=== PATIENT | female | born 1965 | race Caucasian/White ===

== ENCOUNTER → 2016-11-10 | Outpatient (CLI) | payer OTHER | LOC: FIMAGING 15:16 | DX: Z12.31 Encounter for screening mammogram for malignant neoplasm of breast (principal) | CPT/HCPCS: G0202 ==

== ENCOUNTER → 2017-12-21 | Outpatient (CLI) | payer OTHER | LOC: FIMAGING 08:28 | PROVIDERS: ATTEND Family Medicine | DX: Z12.31 Encounter for screening mammogram for malignant neoplasm of breast (principal) ==

== ENCOUNTER → 2018-09-06 | Outpatient (CLI) | payer OTHER | LOC: FIMAGING 13:30 | PROVIDERS: ATTEND Specialist | DX: L76.34 Postprocedural seroma of skin and subcutaneous tissue following other procedure (principal); Z98.82 Breast implant status ==

== ENCOUNTER 2018-09-11 12:20 | Day surgery (SDC) | payer OTHER ==
[2018-09-11] MEDS ORDERED: MIDAZOLAM 2 MG/2 ML VIAL IVP PRN (12:33)
[2018-09-11] MEDS ORDERED: MEPERIDINE 25 MG/ML SYR IVP PRN (12:33)
[2018-09-11] MEDS ORDERED: NALOXONE HCL 0.4 MG/ML INJ IVP PRN ×2 (12:33→12:44)
[2018-09-11] MEDS ORDERED: fentaNYL 100 MCG/2 ML INJ IVP PRN (12:33)
[2018-09-11] MEDS ORDERED: FLUMAZENIL 0.5 MG/5 ML MDV IVP PRN (12:33)
[2018-09-11] MEDS ORDERED: ceFAZolin 2 GM/DEXTROSE 100 ML IV ONE (12:44)
[2018-09-11] MEDS ORDERED: NS 1,000 ML IV SCH (12:45)
[2018-09-11] MEDS ORDERED: CEFAZOLIN 2 GM/DEXTROSE/100 ML BAG IV ONE (12:54)
[2018-09-11 13:22] LABS: PLATELET COUNT 307 10^3/uL (150-400)
--- NOTE | 2018-09-11 13:38 | PDPROPOC ---
Sedation Plan of Care ASA Classification: ASA 2 Mallampati Score: Class 2 Mallampati Reference Image:
--- NOTE | 2018-09-11 13:38 | PDRADPRE ---
Radiology History & Physical Indication for procedure: other (right breast seroma) Allergies/Adverse Reactions: Penicillins Allergy (Verified 09/11/18 12:32) Anaphylaxis Mental status: A&Ox3
[2018-09-11 13:39] LABS: INR 1.12 (0.83-1.16); PROTIME(PATIENT) 14.6 SEC (12.0-15.0)
--- NOTE | 2018-09-11 14:50 | PDRADPN ---
Radiology Procedure Note Date of Procedure: 09/11/18 Radiologist: Clyde Presley Anesthesia: IV Sedation Pre-op Diagnosis: right breast fluid Post-op Diagnosis: same Procedure: right breast aspiration Finding(s): right breast fluid has decreased, small pocket anterior to the implant was aspirated Inf/Abcess present in the surg proc area at time of surgery?: Yes Depth: Superfical (Skin SQ)
[2018-09-11] MEDS ORDERED: ONDANSETRON 4 MG/2 ML VIAL IVP PRN (15:04)
[2018-09-11] MEDS ORDERED: ACETAMINOPHEN 325 MG TAB PO PRN (15:04)
[2018-09-11 15:26] VITALS: BP 123/76
== END 2018-09-11 15:52 | disposition home or self-care (01) ==
LOC: FIMAGING 12:20
PROVIDERS: ATTEND Specialist
PROC: 0H9T3ZX Drainage of Right Breast, Percutaneous Approach, Diagnostic (ICD-10-PCS; principal; 2018-09-11 14:44)
DX: L76.34 Postprocedural seroma of skin and subcutaneous tissue following other procedure (principal); N64.4 Mastodynia; Z98.82 Breast implant status; Z88.0 Allergy status to penicillin
CPT/HCPCS: J0690; J2250; J2310; J3010